=== PATIENT | male | born 1980 | race Caucasian/White ===

== ENCOUNTER 2016-06-06 21:28 | Emergency (ER) | payer SELFPAY ==
[~2016-06-06] VITALS: Ht 182.9 cm; Wt 118.0 kg
[2016-06-06 21:30] VITALS: BP 157/100; PULSE 101; RESP 20; TEMP 98.2; O2SAT 97
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
[2016-06-08] MEDS ORDERED: METH40TA PO (03:05)
[2016-06-08] MEDS ORDERED: BUPR2SUB SL (03:05)
== END 2016-06-07 03:34 | disposition home or self-care (01) ==
LOC: NEPE 21:28
DX: F11.20 Opioid dependence, uncomplicated (principal); Z76.0 Encounter for issue of repeat prescription
CPT/HCPCS: 99281

== ENCOUNTER 2016-06-07 14:07 | Emergency (ER) | payer SELFPAY ==
[~2016-06-07] VITALS: Ht 182.9 cm; Wt 115.0 kg
[2016-06-07 14:12] VITALS: BP 138/98; PULSE 120; RESP 18; TEMP 97.9; O2SAT 94
[2016-06-07 20:42] LABS: AUTOMATED NEUTROPHIL # 7.2 TH/MM3 (1.8-7.7); BASOPHIL # 0.1 TH/MM3 (0-0.2); BASOPHIL % 0.4 % (0.0-2.0); EOSINOPHIL # 0.5 TH/MM3 (0-0.4); EOSINOPHIL % 4.1 % (0.0-4.0); HEMO FLAGS DIFF FINAL; LYMPH % 32.9 % (9.0-44.0); LYMPHOCYTE # 4.3 TH/MM3 (1.0-4.8); MEAN CELL VOLUME 89.1 FL (80.0-100.0); MEAN CORPUSCULAR HEMOGLOBIN 31.5 PG (27.0-34.0); MEAN CORPUSCULAR HGB CONC 35.3 % (32.0-36.0); MONO % 8.2 % (0.0-8.0); NEUT % 54.4 % (16.0-70.0); PLATELET COUNT 238 TH/MM3 (150-450); RED BLOOD COUNT 4.94 MIL/MM3 (4.50-5.90); RED CELL DISTRIBUTION WIDTH 12.8 % (11.6-17.2); WHITE BLOOD COUNT 13.2 TH/MM3 (4.0-11.0)
[2016-06-07 21:04] LABS: AMPHETAMINE, URINE NEG (NEG); BARBITURATES, URINE NEG (NEG); COCAINE, URINE POS (NEG)
[2016-06-07 22:01] LABS: ANION GAP 9 MEQ/L (5-15)
--- NOTE | 2016-06-07 22:02 | PD ---
HPI Chief Complaint: Psychiatric Symptoms Time Seen by Provider: 22:01 Travel History International Travel<30 days: No Contact w/Intl Traveler<30days: No Traveled to known affect area: No History of Present Illness HPI 35-year-old male presents to the emergency Department voluntarily for psych evaluation for suicidal ideation. He says he wants to jump in front of traffic. Reports suicidal attempts 5. Denies homicidal ideations. Claims he is taking methadone and Subutex. Otherwise he denies illicit drug use, alcohol use, tobacco use. Reports hearing voices and seeing things. Says the voices don't say bad things. Has no medical complaints at this time. Denies fever, chills, nausea, vomiting, chest pain, shortness of breath, abdominal pain, change in urine or stool. Denies significant past medical history. No other modifying factors or associated signs and symptoms. PFSH Social History Tobacco Use: No Substance Use: Yes Allergies-Medications (Allergen,Severity, Reaction): Coded Allergies: No Known Allergies (Unverified , 06/07/16) Review of Systems Except as stated in HPI: all other systems reviewed are Neg Physical Exam Narrative GENERAL: Well-nourished, well-developed male patient, in no acute distress; appears intoxicated SKIN: Warm and dry. HEAD: Atraumatic. Normocephalic. EYES: Pupils equal and round. ENT: Mucosa pink and moist. NECK: Supple. Trachea midline. CARDIOVASCULAR: Regular rate and rhythm. No murmur appreciated. RESPIRATORY: No accessory muscle use. Clear to auscultation. Breath sounds equal bilaterally. GASTROINTESTINAL: Abdomen soft, non-tender, nondistended. Hepatic and splenic margins not palpable. Bowel sounds are active 4 quadrants. MUSCULOSKELETAL: No obvious deformities. No clubbing. No cyanosis. No edema. NEUROLOGICAL: Awake and alert. No obvious cranial nerve deficits. Motor grossly within normal limits. Slurred speech. Moves all extremities. 5/5 strength to all extremities. PSYCHIATRIC: No delusional thought processes. No hallucinations. Data Data Last Documented VS Vital Signs Date Time Temp Pulse Resp B/P Pulse Ox O2 Delivery O2 Flow Rate FiO2 06/07/16 14:12 97.9 120 18 138/98 94 Room Air Orders Complete Blood Count With Diff (06/07/16 19:55) Comprehensive Metabolic Panel (06/07/16 19:55) Drug Screen, Random Urine (06/07/16 19:55) Alcohol (Ethanol) (06/07/16 19:55) Salicylates (Aspirin) (06/07/16 19:55) Tylenol (Acetaminophen) (06/07/16 19:55) Psych Screen (06/07/16 19:55) Labs Laboratory Tests Test 06/07/16 17:37 White Blood Count 13.2 TH/MM3 Red Blood Count 4.94 MIL/MM3 Hemoglobin 15.5 GM/DL Hematocrit 44.0 % Mean Corpuscular Volume 89.1 FL Mean Corpuscular Hemoglobin 31.5 PG Mean Corpuscular Hemoglobin 35.3 % Concent Red Cell Distribution Width 12.8 % Platelet Count 238 TH/MM3 Mean Platelet Volume 9.7 FL Neutrophils (%) (Auto) 54.4 % Lymphocytes (%) (Auto) 32.9 % Monocytes (%) (Auto) 8.2 % Eosinophils (%) (Auto) 4.1 % Basophils (%) (Auto) 0.4 % Neutrophils # (Auto) 7.2 TH/MM3 Lymphocytes # (Auto) 4.3 TH/MM3 Monocytes # (Auto) 1.1 TH/MM3 Eosinophils # (Auto) 0.5 TH/MM3 Basophils # (Auto) 0.1 TH/MM3 CBC Comment DIFF FINAL Differential Comment Salicylates Level LESS THAN 1.7 MG/DL Urine Opiates Screen POS Urine Barbiturates Screen NEG Urine Amphetamines Screen NEG Urine Benzodiazepines Screen NEG Urine Cocaine Screen POS Urine Cannabinoids Screen NEG MDM Medical Decision Making Medical Screen Exam Complete: Yes Emergency Medical Condition: Yes Medical Record Reviewed: Yes Differential Diagnosis Suicidal ideation, suicidal threat, medical clearance for psych evaluation Narrative Course Physical exam is unremarkable. Heart rate on physical exam is approximately 80- 90 bpm. Patient presents voluntarily. Physical examination and vital signs are essentially unremarkable. Patient has no medical complaints to report. Psych screen has been ordered. If the laboratory results are unremarkable, the patient will be medically cleared for psychiatric evaluation and disposition. Diagnosis Primary Impression: Medical clearance for psychiatric admission Condition: Stable Grace Alicia Jun 07, 2016 22:02
[2016-06-07 22:08] LABS: ACETAMINOPHEN 3.4 MCG/ML (10.0-30.0); ALKALINE PHOSPHATASE 87 U/L (45-117); ALT (GPT) 319 U/L (12-78); AST (GOT) 825 U/L (15-37); BLOOD UREA NITROGEN 12 MG/DL (7-18); CHLORIDE 102 MEQ/L (98-107); GLOMERULAR FILTRATION RATE 96 ML/MIN (>89); POTASSIUM 3.5 MEQ/L (3.5-5.1); SODIUM (NA) 141 MEQ/L (136-145); TOTAL BILIRUBIN ADULT 0.6 MG/DL (0.2-1.0)
[2016-06-07 22:50] VITALS: BP 141/90; PULSE 92; RESP 18; TEMP 97.1; O2SAT 98
[2016-06-08] MEDS ORDERED: METH40TA PO (03:05)
[2016-06-08] MEDS ORDERED: BUPR2SUB SL (03:05)
[2016-06-08 03:13] VITALS: BP 121/65; PULSE 61; RESP 18; TEMP 97.5; O2SAT 98
[2016-06-08 06:27] VITALS: BP 111/58; PULSE 58; RESP 18; O2SAT 98
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
== END 2016-06-08 09:15 | disposition home or self-care (01) ==
LOC: NEPJ 14:07
DX: F19.20 Other psychoactive substance dependence, uncomplicated (principal); F31.9 Bipolar disorder, unspecified; F41.9 Anxiety disorder, unspecified; Z59.0 Homelessness; Z76.5 Malingerer [conscious simulation]
CPT/HCPCS: 80053; 80307; 80320; 80329; 85025; 99284; G0480

== ENCOUNTER 2016-06-12 16:30 | Emergency (ER) | payer SELFPAY ==
[~2016-06-12 16:30] MED LIST: BUPR2SUB SL; METH40TA PO
[2016-06-12 16:33] VITALS: BP 180/98; PULSE 106; RESP 14; TEMP 98.4; O2SAT 96
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
[2016-06-12] MEDS ORDERED: ROBA750T PO (17:54)
== END 2016-06-12 18:13 | disposition home or self-care (01) ==
LOC: NEPB 16:30
DX: M54.5 Low back pain (principal)
CPT/HCPCS: 99282

== ENCOUNTER 2016-06-13 20:05 | Emergency (ER) | payer SELFPAY ==
[~2016-06-13] VITALS: Ht 180.3 cm; Wt 120.0 kg
[~2016-06-13 20:05] MED LIST changes: +ROBA750T PO
[2016-06-13 20:07] VITALS: BP 176/102; PULSE 106; RESP 20; TEMP 98.3; O2SAT 95
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
[2016-06-14 01:04] LABS: AMPHETAMINE, URINE NEG (NEG); BARBITURATES, URINE NEG (NEG); COCAINE, URINE POS (NEG)
[2016-06-14 01:20] LABS: AUTOMATED NEUTROPHIL # 8.1 TH/MM3 (1.8-7.7); BASOPHIL # 0.1 TH/MM3 (0-0.2); BASOPHIL % 0.5 % (0.0-2.0); EOSINOPHIL # 0.5 TH/MM3 (0-0.4); EOSINOPHIL % 3.2 % (0.0-4.0); HEMATOCRIT 44.4 % (39.0-51.0); HEMO FLAGS DIFF FINAL; LYMPHOCYTE # 4.5 TH/MM3 (1.0-4.8); MEAN CELL VOLUME 89.6 FL (80.0-100.0); MEAN CORPUSCULAR HEMOGLOBIN 30.6 PG (27.0-34.0); MEAN CORPUSCULAR HGB CONC 34.1 % (32.0-36.0); MONO % 9.5 % (0.0-8.0); NEUT % 55.8 % (16.0-70.0); PLATELET COUNT 254 TH/MM3 (150-450); RED BLOOD COUNT 4.95 MIL/MM3 (4.50-5.90); WHITE BLOOD COUNT 14.5 TH/MM3 (4.0-11.0)
[2016-06-14 01:21] LABS: ANION GAP 8 MEQ/L (5-15)
[2016-06-14 01:34] LABS: ALKALINE PHOSPHATASE 76 U/L (45-117); ALT (GPT) 96 U/L (12-78); AST (GOT) 65 U/L (15-37); BICARBONATE 25.5 MEQ/L (21.0-32.0); BLOOD UREA NITROGEN 13 MG/DL (7-18); CHLORIDE 106 MEQ/L (98-107); GLOMERULAR FILTRATION RATE 97 ML/MIN (>89); POTASSIUM 3.4 MEQ/L (3.5-5.1); SODIUM (NA) 139 MEQ/L (136-145); TOTAL BILIRUBIN ADULT 0.7 MG/DL (0.2-1.0)
[2016-06-14 01:36] LABS: ACETAMINOPHEN LESS THAN 2.0 MCG/ML (10.0-30.0)
[2016-06-14 07:00] VITALS: BP 154/84; PULSE 87; RESP 16; TEMP 98.4; O2SAT 98
[2016-06-14 10:23] VITALS: BP 137/86; PULSE 76; RESP 18; TEMP 98; O2SAT 97
[2016-06-14 13:58] VITALS: BP 133/82; PULSE 73; RESP 18; O2SAT 96
== END 2016-06-14 18:22 | disposition home or self-care (01) ==
LOC: NEPB 20:05 → NEPJ 06-14 18:22
DX: R45.851 Suicidal ideations (principal); F14.10 Cocaine abuse, uncomplicated; F11.10 Opioid abuse, uncomplicated; Z76.5 Malingerer [conscious simulation]; Z59.0 Homelessness
CPT/HCPCS: 80053; 80178; 80307; 80320; 80329; 85025; 99283; G0480